=== PATIENT | female | born 1990 ===

== ENCOUNTER 2018-03-05 08:31 | Inpatient (IN) | payer BC, OTHER ==
[2018-03-05 10:08] VITALS: BMI 29.5
[2018-03-05] MEDS ORDERED: NALOXONE HCL 0.4 MG/ML VIAL IVPUSH PRN (10:34)
[2018-03-05] MEDS ORDERED: FENTANYL/BUPIVACAINE/NS/PF - PCEA - 50 ML DISP.SYRIN EP ONE (10:38)
[2018-03-05] MEDS ORDERED: FENTANYL/BUPIVACAINE/NS/PF - PCEA - 50 ML DISP.SYRIN EP SCH (10:45)
[2018-03-05 11:00] LABS: BASO % 0.1 % (0-2.0); EOS % 0.2 % (0-4.5); HEMATOCRIT 37.3 % (32.4-45.2); HEMOGLOBIN 11.6 GM/dL (10.7-15.3); MCH 22.9 pg (25.7-33.7); MCHC 31.1 g/dl (32.0-36.0); MEAN CELL VOLUME 73.6 fl (80-96); MEAN PLT VOLUME 9.4 fl (7.5-11.1); MONO % 4.2 % (3.8-10.2); NEUT % 84.5 % (42.8-82.8); PLATELET COUNT 272 K/MM3 (134-434); RBC 5.07 M/mm3 (3.60-5.2); RDW 17.3 % (11.6-15.6); WHITE BLOOD COUNT 9.9 K/mm3 (4.0-10.0)
[2018-03-05 11:03] LABS: INR 0.86 (0.83-1.09); PROTHROMBIN TIME (PATIENT) 10.1 SEC (9.7-13.0)
[2018-03-05 11:06] LABS: ACTIVATED PTT 29.4 SECONDS (25.2-36.5); ANION GAP 7 MMOL/L (8-16); BLOOD UREA NITROGEN 10 mg/dL (7-18); CALCIUM 9.2 mg/dL (8.5-10.1); CHLORIDE 106 mmol/L (98-107); CO2 23 mmol/L (21-32); CREATININE 0.6 mg/dL (0.55-1.3); GLUCOSE,RANDOM 76 mg/dL (74-106); POTASSIUM 3.9 mmol/L (3.5-5.1); SODIUM 135 mmol/L (136-145)
[2018-03-05] MEDS ORDERED: ELECTROLYTE-148 SOLN 1,000 ML IV SCH (11:15)
--- NOTE | 2018-03-05 11:15 | HP ---
Past Medical History - Admission History of Present Illness: 28 yo @ 39 4/7 wks by first trimester ultrasound, EDC 03/08/2018 complicated by: 1. Prior delivery at 36 wks, induction of labor for oligohydramnios Patient reports contractions started 2 days ago, became more intense and frequent at 0300. She denies leakage of fluid, vaginal bleeding and reports movement. History Source: Patient Limitations to Obtaining History: No Limitations - Past Medical History Cardiovascular: No: HTN Pulmonary: No: Asthma ...: 2 ...Para: 1 ...Term: 0 ...: 1 ...Spon : 0 ...Induced : 0 ...Multiple Gestation: 0 ...EDC by Sono: 03/08/18 Heme/Onc: No: Anemia - Past Surgical History Past Surgical History: Yes: Appendectomy Hx Myomectomy: No Hx Transabdominal Cerclage: No Additional Surgical History: Thyroid nodule removal - Smoking History Smoking history: Never smoked Have you smoked in the past 12 months: No - Alcohol/Substance Use Hx Alcohol Use: No History of Substance Use: reports: None - Social History Usual Living Arrangement: Yes: With Spouse History of Recent Travel: No Home Medications - Allergies Allergies/Adverse Reactions: Allergies Allergy/AdvReac Type Severity Reaction Status Date / Time No Known Allergies Allergy Verified 03/05/18 09:29 - Home Medications Home Medications: Ambulatory Orders Pnv No.95/Ferrous Fum/Folic AC [ Formula] 325 each PO DAILY 03/05/18 Family Disease History - Family Disease History Family History: Denies Review of Systems - Review of Systems Constitutional: reports: No Symptoms Neck: reports: No Symptoms Cardiovascular: reports: No Symptoms Respiratory: reports: No Symptoms Genitourinary: reports: No Symptoms Musculoskeletal: reports: No Symptoms Integumentary: reports: No Symptoms Neurological: reports: No Symptoms Endocrine: reports: No Symptoms Psychiatric: reports: No Symptoms Physical Exam - Maternity Vital Signs: Vital Signs Temperature 98.3 F 03/05/18 10:00 Pulse Rate 70 03/05/18 10:00 Respiratory Rate 18 03/05/18 10:00 Blood Pressure 111/70 03/05/18 10:00 O2 Sat by Pulse Oximetry (%) Constitutional: Yes: Well Nourished, No Distress, Calm Cardiovascular: Yes: Regular Rate and Rhythm Lungs: Clear to auscultation - Abdominal Exam/OB Number of Fetuses: Single Presentation: Vertex Contractions: Yes Regularity: Regular Category: I Accelerations: Non-Uniform Decelerations: None - Vaginal Exam/OB Vaginal Bleediing: No Dilatation (cm): 8 Effacement (%): 90 Amniotic Membrane Status: Ruptured Amniotic Fluid: Yes: Clear Station: 0 - Physical Exam ...Motor Strength: WNL Psychiatric: Yes: Alert, Oriented - Labs Lab Results: CBC, BMP 03/05/18 10:20 03/05/18 10:20 PNL: O positive; antibody negative RPR NR; HBS Ag neg; HCV neg; Hg Brandi AA; HIV neg x 2; GBS neg; GCT WNL Hemorrhage Risk Assessment - Risk Factors Medium Risk Factors: Yes: None High Risk Factors: Yes: None Risk Score: 1 Risk Level: Medium Risk Assessment/Plan 28 yo @ 39 + wks active labor 1. Admit to L&D 2. Consents reviewed and signed 3. Routine labs collected and sent 4. Patient received epidrual for pain control 5. GBS negative 6. Will proceed to expectant management
[2018-03-05] MEDS ORDERED: OXYTOCIN 20 UNITS in 0.9% NS 20 UNIT/1,000 ML INFUS.BAG IV ONE ×2 (11:26→15:22)
--- NOTE | 2018-03-05 14:26 | PN ---
Delivery - Delivery Vaginal Delivery: No Problems Type of Anesthesia: Epidural Episiotomy/Laceration: 1st degree EBL (cc): 300 Delivery, Single - Stages of Labor Date 1st Stage Initiatied: 03/05/18 Time 1st Stage Initiated: 03:00 Date 2nd Stage Initiated: 03/05/18 Time 2nd Stage Initiated: 14:00 Date of Delivery: 03/05/18 Time of Delivery: 14:10 Date Placenta Delivered: 03/05/18 Time Placenta Delivered: 14:15 Placenta: Yes: Spontaneous - Condition of Gender: Female Position: Left, OA - 1 Minute Total Score: 9 5 Minutes Total Score: 9 - Feeding Plan Initial Plan: Exclusive throughout hospitalization Remarks - Remarks Remarks: Patient progressed to fully dilated and at 1410 via delivered a viable female infant in TERESITA position, APGARs 9,9. Weight and length unknown at this time. Head delivered spontaneously. Nuchal cord noted and reduced, followed by shoulders and body without difficulty. Infant with spontaneous cry and placed on mother's abdomen. Nose and mouth was bulb suctioned. Cord was clamped and cut. Perineum and vagina examined, a first degree laceration was noted and repaired in the usual fashion. Placenta was delivered spontaneously and intact. 20 units of pitocin in 1 L IVF was given. All counts correct x 2. Mother and stable in LDR. EBL 300cc.
[2018-03-05] MEDS ORDERED: BENZOCAINE 28 GM HEMORRHOIDAL OINTMENT TP PRN (14:31)
[2018-03-05] MEDS ORDERED: ACETAMINOPHEN 325 MG TABLET (FP) PO PRN (14:31)
[2018-03-05] MEDS ORDERED: METHYLERGONOVINE MALEATE 0.2 MG/1 ML AMP IM PRN (14:31)
[2018-03-05] MEDS ORDERED: WITCH HAZEL 50% (TUCKS) 40 PAD/JAR PAD TP PRN (14:31)
[2018-03-05] MEDS ORDERED: BISACODYL 10 MG SUPP.RECT RC PRN (14:31)
[2018-03-05] MEDS ORDERED: IBUPROFEN 600 MG TABLET (FP) PO PRN (14:31)
[2018-03-05] MEDS ORDERED: BENZOCAINE 20% 57 GM BOTTLE TP PRN (14:31)
[2018-03-05] MEDS ORDERED: OXYTOCIN 20 UNITS in 0.9% NS 20 UNIT/1,000 ML INFUS.BAG IV SCH (14:45)
[2018-03-05] MEDS ORDERED: TUBERCULIN PPD 5 TU/0.1ML SYRINGE (IN PATIENT USE ONLY) ID ONE (16:00)
[2018-03-05] MEDS: FERROUS SO4 325 MG TABLET (FP) PO SCH (17:05)
[2018-03-06 07:42] LABS: BASO % 0.5 % (0-2.0); EOS % 0.7 % (0-4.5); HEMATOCRIT 31.8 % (32.4-45.2); HEMOGLOBIN 9.9 GM/dL (10.7-15.3); MCH 23.2 pg (25.7-33.7); MCHC 31.2 g/dl (32.0-36.0); MEAN CELL VOLUME 74.3 fl (80-96); MEAN PLT VOLUME 9.6 fl (7.5-11.1); MONO % 4.5 % (3.8-10.2); NEUT % 72.3 % (42.8-82.8); PLATELET COUNT 248 K/MM3 (134-434); RBC 4.28 M/mm3 (3.60-5.2); RDW 17.1 % (11.6-15.6); WHITE BLOOD COUNT 7.1 K/mm3 (4.0-10.0)
--- NOTE | 2018-03-06 07:44 | PN ---
Post Progress Note - Subjective Subjective: Patient without acute complaints. Reports tolerating oral intake without nausea or vomiting. Ambulating without dizziness. Denies fevers or chills. Pain well controlled with oral pain medication. without difficulty. Passing flatus. Post Day: 1 Type of Delivery: Vital Signs: Vital Signs Temperature 98.1 F 03/06/18 06:00 Pulse Rate 69 03/06/18 06:00 Respiratory Rate 18 03/06/18 06:00 Blood Pressure 107/65 03/06/18 06:00 O2 Sat by Pulse Oximetry (%) 100 03/05/18 15:15 Breast Exam: Yes: Soft Uterus: Yes: Fundus Firm, Fundus below umbilicus Abdomen/GI: Yes: Abdomen soft, Passing flatus, Tolerating PO. No: Tender Lochia: Yes: Serosa Lochia, amount: Small Extremities: Yes: Calves non-tender. No: Edema Perineum: Yes: Laceration (1st degree) Activity: Ambulating - Labs Labs: CBC WBC 9.9 K/mm3 (4.0-10.0) 03/05/18 10:20 RBC 5.07 M/mm3 (3.60-5.2) 03/05/18 10:20 Hgb 11.6 GM/dL (10.7-15.3) 03/05/18 10:20 Hct 37.3 % (32.4-45.2) 03/05/18 10:20 MCV 73.6 fl (80-96) L 03/05/18 10:20 MCH 22.9 pg (25.7-33.7) L 03/05/18 10:20 MCHC 31.1 g/dl (32.0-36.0) L 03/05/18 10:20 RDW 17.3 % (11.6-15.6) H 03/05/18 10:20 Plt Count 272 K/MM3 (134-434) 03/05/18 10:20 MPV 9.4 fl (7.5-11.1) 03/05/18 10:20 Absolute Neuts (auto) 8.3 K/mm3 (1.5-8.0) H 03/05/18 10:20 Neutrophils % 84.5 % (42.8-82.8) H 03/05/18 10:20 Lymphocytes % 11.0 % (8-40) 03/05/18 10:20 Monocytes % 4.2 % (3.8-10.2) 03/05/18 10:20 Eosinophils % 0.2 % (0-4.5) 03/05/18 10:20 Basophils % 0.1 % (0-2.0) 03/05/18 10:20 Nucleated RBC % 0 % (0-0) 03/05/18 10:20 Assessment/Plan 28 yo PPD # 1 s/p , afebrile, vital signs stable, doing well 1. Continue routine care. 2. Follow up AM CBC 3. Rh positive status, no rhogam indicated. 4. Encourage ambulation 5. Continue oral pain medication 6. Anticipate discharge home day #2
[2018-03-06] MEDS: PRENATAL VITAMINS W/ FOLIC ACID TABLET (FP) PO SCH (10:29)
[2018-03-06] MEDS: FERROUS SO4 325 MG TABLET (FP) PO SCH ×3 (10:29→17:47)
[2018-03-06] MEDS ORDERED: SENNOSIDES/DOCUSATE COMBO (SENNA PLUS) TABLET (UD) PO PRN (22:00)
[2018-03-07] MEDS: FERROUS SO4 325 MG TABLET (FP) PO SCH ×2 (08:09→12:31)
--- NOTE | 2018-03-07 08:18 | DS ---
Physical Exam-[employer]IST Vital Signs: Vital Signs Temperature 98.5 F 03/06/18 21:35 Pulse Rate 74 03/06/18 21:35 Respiratory Rate 20 03/06/18 21:35 Blood Pressure 117/61 03/06/18 21:35 O2 Sat by Pulse Oximetry (%) 100 03/05/18 15:15 Constitutional: Yes: Well Nourished, No Distress, Calm Eyes: Yes: WNL, Conjunctiva Clear HENT: Yes: WNL, Atraumatic, Normocephalic Neck: Yes: WNL, Supple, Trachea Midline Cardiovascular: Yes: WNL, Regular Rate and Rhythm Respiratory: Yes: WNL, Regular, CTA Bilaterally Gastrointestinal: Yes: WNL, Normal Bowel Sounds, Soft ...Rectal Exam: Yes: Deferred Renal/: Yes: WNL ....Post : Yes: Uterus firm, Uterus non-tender, Slight lochia rubra Breast(s): Yes: WNL Musculoskeletal: Yes: WNL Extremities: Yes: WNL Edema: Yes Edema: LLE: Trace, RLE: Trace Integumentary: Yes: WNL Neurological: Yes: WNL, Alert, Oriented ...Motor Strength: WNL Psychiatric: Yes: WNL, Alert, Oriented Labs: CBC, BMP 03/06/18 06:40 03/05/18 10:20 Delivery - Delivery Vaginal Delivery: No Problems Type of Anesthesia: Epidural Episiotomy/Laceration: 1st degree EBL (cc): 300 Delivery, Single - Stages of Labor Date 1st Stage Initiatied: 03/05/18 Time 1st Stage Initiated: 03:00 Date 2nd Stage Initiated: 03/05/18 Time 2nd Stage Initiated: 14:00 Date of Delivery: 03/05/18 Time of Delivery: 14:10 Date Placenta Delivered: 03/05/18 Time Placenta Delivered: 14:15 Placenta: Yes: Spontaneous - Condition of Infant Lead Software Developer/Drapery Hand Present: [place]: Servando Leung Gender: Female Weight: 3.544 kg Position: Left, OA Total Hours ROM (Hrs/Mins): 3hrs/15mins - 1 Minute Total Score: 9 5 Minutes Total Score: 9 - [place] Feeding Plan Initial Plan: Exclusive throughout hospitalization Benefits of Exclusively reinforced: Yes Discharge Summary Reason For Visit: LABOR ADMISSION Labor at term Procedures: Principal: JULES Hospital Course: Normal recovery Condition: Good - Instructions Diet, Activity, Other Instructions: Physical activity Resume your normal everyday activity as tolerated no heavy lifting or exercise until seen by your surgeon. You may walk unlimited hannah of and climb stairs. You may resume driving the car when you feel safe and comfortable behind the wheel. No sexual activity as instructed. Wound care If you have a bandage, leave it on, and keep dry for 48-72 hours. After that time discard the outer bandage. If they are tapes on the skin under the out of bandage leave them in place. They will peel off in the next 7 to 10 days. Do Not Peel them off. You may shower the day after surgery. If there are tapes present on the skin, you may shower over them. Diet There are no dietary restrictions. Eat healthy, high-fiber foods. Drink 6 to 8 glasses of liquid each day. This will assist in keeping your bowels are regular. Pain management You may take Tylenol or acetaminophen or Ibuprofen (for example, Motrin, Advil etc.) from my pain prescription medication is ordered should be taken as prescribed for moderate to severe pain. Call MD for any of the following: Severe pain not relieved by medication Fever of 101 or higher Excessive bleeding or drainage on dressing Inability to urinate Referrals: Ronnie Wagner MD [Staff Physician] - Disposition: HOME - Home Medications Comprehensive Discharge Medication List: Ambulatory Orders Pnv No.95/Ferrous Fum/Folic AC [ Formula] 325 each PO DAILY 03/05/18
[2018-03-07 08:38] VITALS: BP 120/66; PULSE 70; TEMP 98
[2018-03-07] MEDS: PRENATAL VITAMINS W/ FOLIC ACID TABLET (FP) PO SCH (09:18)
== END 2018-03-07 14:00 | disposition home or self-care (01) | DRG 807 ==
LOC: JDEL 08:31 → JLDR 09:15 → J3W 15:47
PROVIDERS: ADMIT Obstetrics & Gynecology; ATTEND Obstetrics & Gynecology
PROC: 0HQ9XZZ Repair Perineum Skin, External Approach (ICD-10-PCS; principal; 2018-03-05)
PROC: 10E0XZZ Delivery of Products of Conception, External Approach (ICD-10-PCS; 2018-03-05)
DX: O70.0 First degree perineal laceration during delivery (principal); Z37.0 Single live birth; Z3A.39 39 weeks gestation of pregnancy
CPT/HCPCS: 36415; 59025; 59409; 80048; 85025; 85610; 85730; 86593; 86850; 86900; 86901; 90686; G0008

== ENCOUNTER 2020-12-13 04:25 | Day surgery (SDC) | payer BC, OTHER ==
[2020-12-08 14:24] VITALS: BMI 30.4
[2020-12-13] MEDS ORDERED: PROPOFOL 20 ML ONE ×2 (10:47)
[2020-12-13] MEDS ORDERED: LIDOCAINE HCL/PF 2% SDV 5ML VIAL ONE (10:47)
[2020-12-13] MEDS ORDERED: SUCCINYLCHOLINE CHLORIDE 200 MG/10 ML SYRINGE ONE (10:51)
[2020-12-13] MEDS ORDERED: ceFAZolin SODIUM 1 GM VIAL IVPB ONE (11:04)
[2020-12-13] MEDS ORDERED: MIDAZOLAM HCL 2 MG/2 ML SINGLE DOSE VIAL ONE (11:31)
[2020-12-13] MEDS ORDERED: PROMETHAZINE HCL 25 MG/1 ML VIAL IVPUSH PRN (11:40)
[2020-12-13] MEDS ORDERED: ONDANSETRON 4 MG/2 ML VIAL IVPUSH PRN ×2 (11:40→11:41)
[2020-12-13] MEDS ORDERED: oxyCODONE HCL 5 MG TABLET PO PRN ×3 (11:40→15:02)
[2020-12-13] MEDS ORDERED: IBUPROFEN 800 MG/8 ML IJ IVPB PRN (11:41)
[2020-12-13] MEDS ORDERED: IBUPROFEN 600 MG TABLET (FP) PO PRN (11:41)
[2020-12-13] MEDS ORDERED: ELECTROLYTE-148 SOLN 1,000 ML IV SCH (11:45)
[2020-12-13] MEDS ORDERED: oxyCODONE HCL 5 MG TABLET ONE (14:17)
[2020-12-13] MEDS ORDERED: ACETAMINOPHEN 1000 MG/100 ML BAG IVPB ONE (15:01)
[2020-12-13] MEDS ORDERED: ONDANSETRON 4 MG/2 ML VIAL ONE (15:49)
[2020-12-13 16:29] VITALS: BP 95/65; PULSE 86; TEMP 97.8
== END 2020-12-13 16:30 | disposition home or self-care (01) ==
LOC: JASU-SURG 04:25
PROVIDERS: ATTEND Obstetrics & Gynecology
PROC: 0UDB8ZZ Extraction of Endometrium, Via Natural or Artificial Opening Endoscopic (ICD-10-PCS; principal; 2020-12-13 10:00)
DX: N92.0 Excessive and frequent menstruation with regular cycle (principal); N94.6 Dysmenorrhea, unspecified
CPT/HCPCS: 81025; 94760; J0131